=== PATIENT | male | born 1990 | race Caucasian/White ===

== ENCOUNTER 2019-01-26 01:44 | Emergency (ER) | payer BC ==
[~2019-01-26] VITALS: Ht 177.8 cm; Wt 86.2 kg
[2019-01-26] MEDS ORDERED: IBUP600 PO (02:27)
== END 2019-01-26 02:40 | disposition home or self-care (01) ==
LOC: ER 01:44
DX: M75.21 Bicipital tendinitis, right shoulder (principal)
CPT/HCPCS: 73030; 96372; 99283-25; J1885